=== PATIENT | female | born 1995 | race Caucasian/White ===

== ENCOUNTER 2018-04-13 12:27 | Emergency (ER) | payer OTHER, SELFPAY ==
[2018-04-13 13:13] LABS: AMORPHOUS SEDIMENT RFX LARGE (NEGATIVE); KETONE, URINE AUTO RFX NEGATIVE (NEGATIVE); NITRITE, URINE AUTO RFX NEGATIVE (NEGATIVE); RBC, URINE AUTO RFX 2 /HPF (0-3); SPECIFIC GRAVITY UR AUTO RFX 1.018 (1.002-1.035); SQUAM EPITHELIAL CELL UR AURFX 8 /HPF (0-6); WBC, URINE AUTO RFX 0 /HPF (0-3)
[2018-04-13 13:27] LABS: LEUKOCYTE ESTERASE UR AUTO RFX 1+ (NEGATIVE)
[2018-04-13] MEDS: FLUCONAZOLE 100 MG TAB PO ×2 (14:19)
[2018-04-13 15:39] LABS: CHLAMYDIA DNA AMPLIFICATION NEGATIVE (NEGATIVE); GC DNA AMPLIFICATION NEGATIVE (NEGATIVE)
== END 2018-04-13 14:23 | disposition home or self-care (01) ==
LOC: M ED 12:27
DX: B37.3 Candidiasis of vulva and vagina (principal)
CPT/HCPCS: 81001

== ENCOUNTER → 2018-05-02 | Outpatient (CLI) | payer OTHER ==
[2018-05-04 00:08] LABS: HERPES ZOSTER, VARICELLA IgM <0.91 index (0.00-0.90)
[2018-05-04 00:08] LABS: HERPES ZOSTER, VARICELLA IgG 3512 index (Immune >165)
[2018-05-05 00:07] LABS: QuantiFERON-TB Gold Plus Negative (Negative)
== END ==
LOC: M LAB 13:38
DX: Z02.89 Encounter for other administrative examinations (principal)
CPT/HCPCS: 86787

== ENCOUNTER 2019-05-01 15:00 | Emergency (ER) | payer OTHER ==
[~2019-05-01] VITALS: Ht 165.1 cm; Wt 62.9 kg
[~2019-05-01 15:00] MED LIST: DIFL150T PO; KEFL500C17 PO; LINZ290C PO
[2019-05-01 17:05] LABS: BASO # 0.1 10^3/uL (0.0-0.2); BASO % 0.6 % (0.0-1.0); EOS # 0.2 10^3/uL (0.0-0.5); HEMATOCRIT 38.3 % (36.0-47.0); HEMOGLOBIN 13.2 g/dl (12.0-15.5); LYMPH # 2.7 10^3/uL (1.5-5.0); LYMPH % 29.5 % (24.0-44.0); MEAN CORPUSCULAR HEMOGLOBIN 31.8 pg (27.0-33.0); MEAN CORPUSCULAR HGB CONC 34.5 g/dl (32.0-36.5); MEAN CORPUSCULAR VOLUME 92.3 fl (80.0-96.0); MONO # 0.6 10^3/uL (0.0-0.8); MONO % 6.1 % (0.0-5.0); NEUTROPHILS # 5.5 10^3/uL (1.5-8.5); NEUTROPHILS % 61.6 % (36.0-66.0); PLATELET COUNT, AUTOMATED 253 10^3/uL (150-450); RED BLOOD COUNT 4.15 10^6/uL (4.00-5.40)
--- NOTE | 2019-05-01 17:30 | ECGEPIP ---
[facility] - ED Test Date: 2019-05-01 Pat Name: LUIS MANUEL TAPIA Department: Room: - Gender: Female Size Worker: [facility] : 1995 Requested By: MEÑO Smiley Order Number: [id number] Reading MD: Alex Mccall Measurements Intervals [place] Rate: 71 P: 23 [place]: 157 QRS: 81 QRSD: 83 T: 56 QT: 381 QTc: 416 Interpretive Statements SINUS RHYTHM BENIGN EARLY REPOLARIZATION NO PRIORS FOR COMPARISON Electronically Signed on 05-01-2019 17:30:43 EDT by Alex Mccall
[2019-05-01 17:47] LABS: ALBUMIN 3.7 GM/DL (3.2-5.2); ALT/SGPT 22 U/L (12-78); BILIRUBIN,TOTAL 0.3 MG/DL (0.2-1.0); BLOOD UREA NITROGEN 16 MG/DL (7-18); CALCIUM LEVEL 9.3 MG/DL (8.5-10.1); CARBON DIOXIDE LEVEL 26 MEQ/L (21-32); CHLORIDE LEVEL 108 MEQ/L (98-107); CK-MB VALUE MASS 2.6 NG/ML (<3.6); CPK CREATINE PHOSPHOKINASE 142 U/L (26-192); CREATININE FOR GFR 0.78 MG/DL (0.55-1.30); GLOMERULAR FILTRATION RATE > 60.0 (>60); GLUCOSE, FASTING 90 MG/DL (70-100); MB/CK RELATIVE INDEX 1.83 (< OR =4); POTASSIUM SERUM 4.2 MEQ/L (3.5-5.1); SODIUM LEVEL 140 MEQ/L (136-145); TOTAL PROTEIN 6.8 GM/DL (6.4-8.2); TROPONIN I < 0.02 NG/ML (< 0.10)
--- NOTE | 2019-05-01 17:52 | REP ---
Two-view chest: 05/01/2019. Indication: Dyspnea. Chest pain. Comparison: None. Findings: The lungs are clear. There is no pleural effusion or pneumothorax. The cardiomediastinal silhouette is normal. Impression: Clear lungs. Electronically Signed by Delvis Wilder DO 05/01/2019 05:43 P
[2019-05-01] MEDS ORDERED: NS 1,000 ML IV ONE ×2 (18:45→20:30)
[2019-05-01 19:41] LABS: CK-MB VALUE MASS 2.1 NG/ML (<3.6); CPK CREATINE PHOSPHOKINASE 131 U/L (26-192); TROPONIN I < 0.02 NG/ML (< 0.10)
[2019-05-01] MEDS ORDERED: LORazepam 1 MG TAB PO STA (20:29)
[2019-05-01 22:59] VITALS: BP 109/65
== END 2019-05-01 23:27 | disposition home or self-care (01) ==
LOC: M ED 15:00
DX: F41.1 Generalized anxiety disorder (principal)

== ENCOUNTER 2019-05-06 06:48 | Day surgery (SDC) | payer OTHER ==
[~2019-05-06] VITALS: Ht 165.1 cm; Wt 62.1 kg
[~2019-05-06 06:48] MED LIST changes: +NS 1,000 ML IV ONE
[2019-05-06] MEDS ORDERED: SIMETHICONE 40MG/0.6ML DROPS 30ML As Ordered ONE (06:56)
--- NOTE | 2019-05-06 07:58 | ROOR ---
Patient Name: Aurora Johnson Procedure Date: 05/06/2019 7:35 AM Date of : 1995 Age: 23 Room: [facility] Gender: Female Note Status: Finalized Procedure: Colonoscopy Indications: Irritable bowel syndrome with constipation Providers: Jacob WEBER MD Referring MD: KENNEY GRUBER DO Requesting Provider: Medicines: Monitored Anesthesia Care Complications: No immediate complications. Procedure: Pre-Anesthesia Assessment: - The heart rate, respiratory rate, oxygen saturations, blood pressure, adequacy of pulmonary ventilation, and response to care were monitored throughout the procedure. The Colonoscope was introduced through the anus and advanced to 10 cm into the ileum. The colonoscopy was performed without difficulty. The patient tolerated the procedure well. The quality of the bowel preparation was good. Findings: The perianal and digital rectal examinations were normal. The colon (entire examined portion) appeared normal. The terminal ileum appeared normal. Impression: - The entire colon is normal. - The examined portion of the ileum was normal. - No specimens collected. - (Irritable Bowel Syndrome/IBS suspected.) Recommendation: - Continue present medications. Jacob Weber MD Jacob WEBER MD 05/06/2019 7:57:38 AM Electronically signed by Jacob WEBER MD Number of Addenda: 0 Note Initiated On: 05/06/2019 7:35 AM Estimated Blood Loss: Estimated blood loss: none.
[2019-05-06] MEDS ORDERED: LIDOCAINE 2% INJ 100 MG/5 ML SDV (FOR ANES.) As Ordered ONE (08:10)
[2019-05-06] MEDS ORDERED: PROPOFOL 200 MG/20 ML VIAL As Ordered ONE (08:10)
[2019-05-06 08:20] VITALS: BP 125/79
== END 2019-05-06 08:26 | disposition home or self-care (01) ==
LOC: M OPP 06:48
PROVIDERS: ATTEND Internal Medicine Gastroenterology
DX: K58.1 Irritable bowel syndrome with constipation (principal); Z79.899 Other long term (current) drug therapy

== ENCOUNTER → 2019-05-09 | Outpatient (REF) | payer OTHER ==
[~2019-05-09] MED LIST changes: -NS 1,000 ML IV ONE
[2019-05-09 13:33] LABS: CHLAMYDIA DNA AMPLIFICATION NEGATIVE (NEGATIVE); GC DNA AMPLIFICATION NEGATIVE (NEGATIVE)
== END ==
LOC: M LAB REF 11:24
PROVIDERS: ATTEND Advanced Practice Midwife
DX: Z12.4 Encounter for screening for malignant neoplasm of cervix (principal); Z11.3 Encounter for screening for infections with a predominantly sexual mode of transmission

== ENCOUNTER → 2019-08-22 | Outpatient (REF) | payer OTHER | LOC: M LAB REF 11:33 | PROVIDERS: ATTEND Internal Medicine Endocrinology, Diabetes & Metabolism | DX: E04.2 Nontoxic multinodular goiter (principal) ==

== ENCOUNTER → 2019-09-19 | Outpatient (CLI) | payer OTHER ==
[2019-09-20 08:12] LABS: RUBELLA IgG QUALITATIVE IMMUNE (IMMUNE)
[2019-09-21 14:15] LABS: HERPES ZOSTER, VARICELLA IgM <0.91 index (0.00-0.90); RUBEOLA IgG ANTIBODY 41.2 AU/mL (Immune >16.4)
== END ==
LOC: M WUC 11:02
PROVIDERS: ATTEND Family Medicine
DX: Z23 Encounter for immunization (principal)

== ENCOUNTER → 2020-01-09 | Outpatient (REF) | payer OTHER | LOC: M LAB REF 09:07 | PROVIDERS: ATTEND Internal Medicine Endocrinology, Diabetes & Metabolism | DX: E04.2 Nontoxic multinodular goiter (principal) ==

== ENCOUNTER → 2020-02-04 | Outpatient (CLI) | payer OTHER ==
--- NOTE | 2020-03-27 13:14 | REP ---
RIGHT LOWER EXTREMITY DOPPLERR ULTRASOUND: HISTORY: Right lower extremity pain x5 days. TECHNIQUE: Real time, oneill scale and color Doppler evaluation using linear high frequency transducer. FINDINGS: Ultrasound examination of the right lower extremity deep venous structures from the common femoral vein to the popliteal vein demonstrates normal compressibility, flow and wave patterns in response to respiration and augmentation. There is no evidence for deep venous thrombosis. IMPRESSION: Negative examination. No evidence for deep venous thrombosis. MTDD
== END ==
LOC: M RAD 15:55
PROVIDERS: ATTEND Physician Assistant
DX: M79.604 Pain in right leg (principal)